=== PATIENT | male | born 1985 | race African-American/Black ===

== ENCOUNTER 2017-08-31 15:22 | Emergency (ER) | payer BC, OTHER ==
[~2017-08-31] VITALS: Ht 193 cm; Wt 114.4 kg
[2017-08-31 15:36] VITALS: BP 156/89
--- NOTE | 2017-08-31 15:40 | NUR ---
PT AMBULATED TO [facility]
--- NOTE | 2017-08-31 15:44 | NUR ---
DR BUSTOS EVALUATING PT AT BEDSIDE
--- NOTE | 2017-08-31 15:44 | NUR ---
PATIENT PRESENTS TO ED WITH C/O SORE THROAT AND HEADACHE X3 DAYS . DENIES N/V/D; SKIN IS PINK/WARM/DRY; AAOX4 WITH EVEN AND STEADY GAIT; LUNGS CLEAR BL; HR EVEN AND REGULAR; PT DENIES ANY FEVER, CP, SOB, OR COUGH AT THIS TIME; PATIENT STATES PAIN OF 9/10 AT THIS TIME; VSS; PATIENT POSITIONED FOR COMFORT; HOB ELEVATED; BEDRAILS UP X2; BED DOWN. ER MD MADE AWARE OF PT STATUS.
--- NOTE | 2017-08-31 15:44 | NUR ---
PATIENT BEING EVALUATED BY DR BUSTOS
[2017-08-31] MEDS ORDERED: DEXAMETHASONE 10 MG/ML VIAL PO ONE (15:55)
[2017-08-31] MEDS ORDERED: KETOROLAC 30 MG/ML VIAL IM ONE (15:55)
[2017-08-31 16:24] VITALS: BP 150/78
--- NOTE | 2017-08-31 16:25 | NUR ---
Patient discharged with v/s stable. Written and verbal after care instructions given and explained. Patient alert, oriented and verbalized understanding of instructions. Ambulatory with steady gait. All questions addressed prior to discharge. ID band removed. Patient advised to follow up with PMD. Rx of TYLENOL WITH CODEINE, AMOXICILLIN AND NAPROSYN given. Patient educated on indication of medication including possible reaction and side effects. Opportunity to ask questions provided and answered.
== END 2017-08-31 16:25 | disposition home or self-care (01) ==
LOC: MED 15:22
DX: J02.9 Acute pharyngitis, unspecified (principal)
CPT/HCPCS: 96372; 99283; J1100; J1885